=== PATIENT | male | born 1985 | race Caucasian/White ===

== ENCOUNTER → 2020-03-31 13:35 | Outpatient (BNVA) | payer OTHER, SELFPAY | PROVIDERS: Family Provider Family Medicine; Visit Provider Dermatology | DX: B07.8 Other viral warts (principal) | CPT/HCPCS: 11900; 17000; 17003; 99203; 99204 ==

== ENCOUNTER → 2020-04-20 12:47 | Outpatient (BNVA) | payer OTHER, SELFPAY | PROVIDERS: Family Provider Family Medicine; Visit Provider Nurse Practitioner | DX: S62.306A Unspecified fracture of fifth metacarpal bone, right hand, initial encounter for closed fracture (principal); X58.XXXA Exposure to other specified factors, initial encounter | CPT/HCPCS: 73130 ==

== ENCOUNTER 2020-04-22 15:50 | Outpatient (CLI) | payer OTHER, SELFPAY | END 2020-04-22 15:51 | disposition home or self-care (01) | LOC: SPT 15:50 | PROVIDERS: Family Provider Family Medicine; PCP Family Medicine; Visit Provider Orthopaedic Surgery | DX: Z46.89 Encounter for fitting and adjustment of other specified devices (principal); S62.396D Other fracture of fifth metacarpal bone, right hand, subsequent encounter for fracture with routine healing; S62.306D Unspecified fracture of fifth metacarpal bone, right hand, subsequent encounter for fracture with routine healing; X58.XXXD Exposure to other specified factors, subsequent encounter | CPT/HCPCS: 97760; L3984 ==

== ENCOUNTER 2020-04-24 08:41 | Day surgery (SDC) | payer OTHER, SELFPAY ==
[2020-04-24] VITALS (11 sets, daily range): BP systolic 111–158; BP diastolic 57–96; PULSE 59–80; RESP 15–23; TEMP 36.1–37.1; O2SAT 95–100
--- NOTE | 2020-04-24 | XR_ITS ---
WS: [id number] Right hand, 2 C-arm fluoroscopy views, 04/24/2020 Clinical Data: PINNING OF METACARPAL Comparison: Right hand, 04/20/2020. Findings: An orthopedic pin has been inserted to reduce the fracture of the distal portion of the rig ht fifth metacarpal. XR/XR hand RT 2V [id number] Impression: Internal fixation of fracture of distal right fifth metacarpal.
--- NOTE | 2020-04-24 | SCC_ITS ---
Procedure Done: Open reduction and internal fixation right fifth metacarpal 53.9 seconds of fluoroscopic guidance, for a cumulative dose of 0.94 mGy, was provided to Dr. Parra by the radiology department. C-arm images of the RIGHT hand were saved for the patient's permanent record. [facility]ITALArtemio
--- NOTE | 2020-04-24 09:06 | ANES.PREANE2 ---
Pre-Anesthetic Assessment Pre-Anesthetic Assessment: Height/Weight: Height 1.8 m Weight 83.461 kg Preop Diagnosis: Right fifth metacarpal fracture Proposed Procedure: Operation Date: 04/24/20 10:25 Proposed Procedures p ORIF Finger [id number] S62.306A(Right) - Song Parra MD Familial anesthetic complications: None Was Beta Ewa taken within 24 hours: N/A Last intake: Intake Last Liquid Date 04/23/20 Last Liquid Time 22:00 Last Solid Date 04/23/20 Last Solid Time 22:00 Social: Social History: No alcohol and No tobacco Exam: Pre-Anes Outpt Exam: alert, oriented x 3, clear to auscultation bilaterally and regular rate & rhythm Airway: Cervical ROM: WNL MP: 2 Dentition: Full Anesthetic Plan: ASA status: 1 Anesthesia: General Risk of > 500 ml blood loss (7ml/kg in children): No PFSH Anesthesia PFSH: Family History Grandfather CAD (coronary artery disease) Grandmother CAD (coronary artery disease) Mother Diabetes Social History Smoking and tobacco status: never smoked Second hand smoke exposure: No Alcohol intake: current Alcohol intake frequency: holidays/special occasions only Data Anesthesia Other Labs: Laboratory Results - last 48 hr 04/23/20 14:25 SARS-CoV-2 RNA (RT-PCR) Cancelled Cardiac Studies: No Data to Display
--- NOTE | 2020-04-24 09:40 | W.PM.OPSUD ---
Surgery/Procedure H&P Update DATE OF PROCEDURE: April 24, 2020 DATE H&P PERFORMED: 04/22/20 PREOP DIAGNOSIS: Right fifth metacarpal fracture PLANNED PROCEDURE: Operation Date: 04/24/20 10:25 Proposed Procedures p ORIF Finger [id number] S62.306A(Right) - Song Parra MD
[2020-04-24] MEDS: sodium chloride 0.9% 1,000 ML 30 ML IV (10:11)
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
--- NOTE | 2020-04-24 12:03 | SUR.PHASEI ---
PT AWAKE ALERT TALKATIVE DENIES PAIN AND NAUSEA PT ON RA TRIAL
[2020-04-24] MEDS: fentaNYL 50 mcg/mL INJ 2mL IVP ×2 (12:10→12:16)
--- NOTE | 2020-04-24 12:14 | SUR.PHASEI ---
1210 PT MORE ALERT NOW RATES RT HAND PAIN AT 8.5 SEE PAIN MED GIVEN
--- NOTE | 2020-04-24 12:32 | SUR.PHASEI ---
1230 PT TO OPS HANDOFF AT BEDSIDE , SPLINT TO RT HAND PT TALKATIVE AND LAUGHING STATES PAIN IS BETTER.
[2020-04-24] MEDS: HYDROcodone-acetaminophen 5-325 mg Tablet 1 TAB PO (12:49)
--- NOTE | 2020-04-24 13:00 | ANE.PACU2 ---
Inpatient post-anesthesia follow up: Airway intact: Yes Vital signs: Temperature 98.7 F Pulse Rate 75 Respiratory Rate 15 Blood Pressure 149/90 Pulse Oximetry 97 Oxygen Delivery Me thod Room Air Oxygen Flow Rate 8 Fraction of Inspir ed Oxygen Hydration adequate: Yes Nausea and vomiting: No Pain level: 1 Mental status: Baseline
[2020-04-25 09:02] LABS: Coronavirus Lab Test PTC Negative
== END 2020-04-24 13:08 | disposition home or self-care (01) ==
PROVIDERS: PCP Family Medicine; Visit Provider Orthopaedic Surgery
PROC: (CPT 20690; principal; 2020-04-24 10:25)
DX: S62.306A Unspecified fracture of fifth metacarpal bone, right hand, initial encounter for closed fracture (principal); W22.8XXA Striking against or struck by other objects, initial encounter
CPT/HCPCS: 20690; 26615; 12345; 73120; 76000; 87635; C1713; J0690; J2704; J3010; J7030

== ENCOUNTER → 2020-05-07 14:05 | Outpatient (BNVA) | payer OTHER, SELFPAY | PROVIDERS: PCP Family Medicine; Visit Provider Nurse Practitioner | DX: R52 Pain, unspecified (principal) | CPT/HCPCS: 81000 ==

== ENCOUNTER 2020-05-08 21:22 | Emergency (ER) | payer OTHER, SELFPAY ==
[2020-05-08 21:29] VITALS: BP 156/89; PULSE 95; RESP 18; TEMP 36.2; O2SAT 99; BMI 25.9
[2020-05-08 22:09] LABS: Basophils % 0.3 %; Eosinophils # 0.2 10^3/uL (0.0-0.8); Eosinophils % 1.9 %; Lymphocytes # 1.8 10^3/uL (0.8-4.8); Lymphocytes % 19.7 %; Mean Corpuscular HGB Conc 32.6 g/dL (30.0-36.0); Mean Corpuscular Hemoglobin 29.7 pg (28.0-34.0); Mean Corpuscular Volume 91.1 fL (80-94); Mean Platelet Volume 12.3 fL (7.4-10.4); Monocytes # 0.7 10^3/uL (0.2-0.9); Monocytes % 7.1 %; Neutrophils # 6.54 10^3/uL (1.8-7.7); Neutrophils % 70.7 %; Nucleated Red Blood Cells % 0 %; Platelet Count 196 10^3/cmm (130-400); Red Blood Count 4.72 10^6/uL (4.1-5.3); Red Cell Distribution Width 12.5 % (12.1-15.1); White Blood Count 9.3 10^3/uL (4.0-10.0)
--- NOTE | 2020-05-08 22:16 | W.ED.ABDPA2 ---
HPI - Abdominal Pain General: Chief Complaint: Abdominal Pain Stated Complaint: abd pain Time Seen by Provider: 05/08/20 22:15 Source: patient Mode of arrival: ambulatory Limitations: no limitations History of Present Illness: HPI narrative: 34-year-old male patient comes in today with complaints of abdominal pain. Patient reports discomfort in the abdomen since Tuesday. Patient was seen at urgent care and they noted sugar in his urine and recommended that he follow-up with primary care. Patient comes in this evening for worsening abdominal pain. Patient has had his appendix out continues to have his gallbladder. Patient is worried for gallbladder. Associated Symptoms: Reports nausea Review of Systems General: Reports: 10 or more systems reviewed and unremarkable except in HPI and below GI: Reports: abdominal pain and nausea PFS ED PFSH: Family History Grandfather CAD (coronary artery disease) Grandmother CAD (coronary artery disease) Mother Diabetes Social History Smoking and tobacco status: never smoked Second hand smoke exposure: No Alcohol intake: current Alcohol intake frequency: holidays/special occasions only Physical Exam Const: COMMON NORMALS: no acute distress and patient oriented x3 GENERAL APPEARANCE: cooperative HENMT: COMMON NORMALS: normocephalic and Normal external nose present HEAD & SCALP: normal to inspection and normocephalic NOSE: Normal external nose present MOUTH: Normal oral and palatal mucosa present THROAT: posterior oropharynx normal Eye: GENERAL EYE: appearance normal, both eyes and all related structures Neck/C-Spine: COMMON NORMALS: full ROM Lymph: LYMPHATIC: no lymphadenopathy noted Chest: COMMONS NORMALS: normal inspection of the chest Resp: COMMON NORMALS: normal respiratory effort EFFORT & INSPECTION: Yes able to speak in complete sentences Cardio: COMMON NORMALS: regular rate and regular rhythm RATE: regular rate RHYTHM: regular rhythm GI: COMMON NORMALS: Soft to palpation (small umbilical hernia, reducible) PALPATION: Yes Soft to palpation (small umbilical hernia, reducible) and Yes Tenderness to palpation present (GI) (right sided abd) : COMMON NORMALS: Yes no CVA tenderness BLADDER/KIDNEY EXAM: Yes no CVA tenderness Back/Pelvis: COMMON NORMALS: no CVA tenderness and thoracic and lumbar spine normal to inspection Extremity: COMMON NORMALS: normal to inspection Neuro: COMMON NORMALS: patient oriented x3 and moves all extremities Psych: COMMON NORMALS: mental status grossly normal and cooperative Skin: COMMON NORMALS: no rashes or lesions noted GENERAL SKIN EXAM: no rashes or lesions noted Course Vital Signs: Vital signs: Vital Signs Temperature 97.2 F L 05/08/20 21:29 Pulse Rate 76 05/08/20 22:51 Respiratory Rate 16 05/08/20 22:51 Blood Pressure 147/88 05/08/20 22:51 Pulse Oximetry 98 05/08/20 22:51 MDM - Abdominal Pain MDM Narrative: Medical decision making narrative: Patient comes in today with right lower quadrant abdominal pain. Patient reports pain for the last 4 to 5 days. Patient denies any fever or nausea or vomiting. Patient appears well. Patient appears in mild to moderate pain. Differential diagnosis includes but not limited to bowel obstruction, cholecystitis, pancreatitis, diverticulitis. Laboratory values noted no significant abnormality. CT scan abdomen pelvis noted some diverticulitis of the ascending colon. Reviewed exam with patient with recommendations for treatment and follow-up. Patient and both reported understanding. Lab Data: Labs: Lab Results 05/08/20 05/08/20 05/08/20 Range/Units 21:45 21:45 22:42 WBC 9.3 (4.0-10.0) 10^3/ uL RBC 4.72 (4.1-5.3) 10^6/u L Hgb 14.0 (11.7-16.6) g/dL Hct 43.0 (42.0-52.0) % MCV 91.1 (80-94) fL MCH 29.7 (28.0-34.0) pg MCHC 32.6 (30.0-36.0) g/dL RDW 12.5 (12.1-15.1) % Plt Count 196 (130-400) 10^3/c mm MPV 12.3 H (7.4-10.4) fL Neut % (Auto) 70.7 % Lymph % (Auto) 19.7 % Gallia % (Auto) 7.1 % Eos % (Auto) 1.9 % Baso % (Auto) 0.3 % Neut # (Auto) 6.54 (1.8-7.7) 10^3/u L Lymph # (Auto) 1.8 (0.8-4.8) 10^3/u L Gallia # (Auto) 0.7 (0.2-0.9) 10^3/u L Eos # (Auto) 0.2 (0.0-0.8) 10^3/u L Baso # (Auto) 0.0 (0.0-0.1) 10^3/u L Nucleated RBC % (a uto) 0 % Nucleated RBCs # 0.0 /100WBC Sodium 137 (136-145) mmol/L Potassium 3.6 (3.5-5.1) mmol/L Chloride 100 (98-107) mmol/L Carbon Dioxide 26 (22-29) mmol/L Anion Gap 14.6 (5-19) BUN 12 (6-20) mg/dL Creatinine 1.2 (0.7-1.2) mg/dL GFR Calculation 69.3 L (90-130) mL/min Glucose 131 H (65-115) mg/dL Calculated Osmolal ity 286 (285-295) mOsm/k g Calcium 8.9 (8.5-10.5) mg/dL Total Bilirubin 0.5 (0.15-1.2) mg/dL AST 25 (0-40) U/L ALT 37 (0-41) U/L Alkaline Phosphata se 82 (40-130) IU/L Total Protein 7.6 (6.6-8.7) g/dL Albumin 4.1 (3.5-5.2) g/dL Globulin 3.5 (1.3-4.6) g/dL Lipase 32 (13-60) U/L Urine Color Yellow (Yellow) Urine Appearance Clear (CLEAR) Urine pH 5 (5-7) Ur Specific Gravit y 1.020 (1.005-1.030) Urine Protein Neg (Negative) Urine Glucose (UA) Norm (Normal) Urine Ketones Negative (Negative) Urine Blood Neg (Negative) Urine Nitrate Negative (Negative) Urine Bilirubin Neg (Negative) Urine Urobilinogen 1 H (Negative) mg/dL Ur Leukocyte Radha ase Negative (Negative) Discharge Plan Discharge Patient Disposition: Home Clinical Impression: Diverticulitis Condition: Stable Prescriptions: New ciprofloxacin HCl 500 mg tablet 500 mg PO BID Qty: 14 RF: 0 metronidazole 500 mg tablet 500 mg PO BID 7 Days Qty: 14 RF: 0 No Action (DME) Fast form ulnar gutter See Rx Instructions .Route .MEDSUPPLY Qty: 1 RF: 0 omeprazole 40 mg capsule,delayed release(DR/EC) 40 mg PO DAILY Qty: 14 RF: 0 hydrocodone-acetaminophen 5-325 mg tablet 1 tab PO Q4H Qty: 30 RF: 0 Discharge Orders: Discharge Order (Routine); Ordered 05/09/20 Ordered By: Young Richardson Referrals: Jimmy Park MD [Primary Care Provider] - Discharge Diet: Usual diet Discharge Activity: Increase activity as tolerated Patient Instructions: Diverticulitis (ED) Activity Restrictions/Additional Instructions: Home and rest. Monitor for high fever. Monitor for worsening pain. Monitor for nausea vomiting and blood in stool. Follow-up with primary care as needed. Return to the emergency department for new concerns. Coding Level of Care Code ED Appliances Sample Maker for Gio Fwd Exam Comprehensive
[2020-05-08 22:22] LABS: Alanine Aminotransferase 37 U/L (0-41); Albumin Level 4.1 g/dL (3.5-5.2); Alkaline Phosphatase 82 IU/L (40-130); Anion Gap 14.6 (5-19); Aspartate Amino Transferase 25 U/L (0-40); Blood Urea Nitrogen 12 mg/dL (6-20); Calcium 8.9 mg/dL (8.5-10.5); Carbon Dioxide 26 mmol/L (22-29); Chloride 100 mmol/L (98-107); Globulin 3.5 g/dL (1.3-4.6); Glomerular Filtration Rate 69.3 mL/min (90-130); Glucose 131 mg/dL (65-115); Lipase 32 U/L (13-60); Osmolality Calculated 286 mOsm/kg (285-295); Potassium 3.6 mmol/L (3.5-5.1); Sodium 137 mmol/L (136-145); Total Bilirubin 0.5 mg/dL (0.15-1.2); Total Protein 7.6 g/dL (6.6-8.7)
--- NOTE | 2020-05-08 22:23 | CTR_ITS ---
PROCEDURE INFORMATION: Exam: CT Abdomen And Pelvis With Contrast Exam date and time: 05/08/2020 10:48 PM Age: 34 years old Clinical indication: Abdominal pain; Generalized; Prior surgery; Surgery type: Appy; Additional info: Diffuse abd pain TECHNIQUE: Imaging protocol: Computed tomography of the abdomen and pelvis with intravenous contrast. Radiation optimization: All CT scans at this facility use at least one of these dose optimization techniques: automated exposure control; mA and/or kV adjustment per patient size (includes targeted exams where dose is matched to clinical indication); or iterative reconstruction. Contrast material: OMNI 300; Contrast volume: 95 ml; Contrast route: INTRAVENOUS (IV); COMPARISON: No relevant prior studies available. RADIATION DOSE METRICS: Total DLP (mGy-cm): 603.3 FINDINGS: Lungs: The lung bases are clear. Mediastinal space: Very small hiatal hernia. There may be some mucosal/wall thickening involving the lower esophagus. This is nonspecific, but could represent evidence for esophagitis. Please correlate clinically. Liver: Unremarkable. Gallbladder and bile ducts: The gallbladder is contracted. No visible gallstones by CT. No biliary tree dilation. Pancreas: Unremarkable. Spleen: Unremarkable. Adrenals: Unremarkable. Kidneys and ureters: Unremarkable. Stomach and bowel: There are moderate to severe inflammatory changes around the upper ascending colon. Findings likely represent right-sided diverticulitis. There is some associated mucosal/wall thickening. Small amount of pericolonic fluid. No definite pericolonic abscess at this time. There appears to be a 15 mm inflamed diverticulum in this region, containing some gas. Possibility of a small amount of extraluminal gas, this could indicate microperforation. Other etiologies that could present with a similar appearance would include; other forms of colitis/focal inflammatory bowel diseases, and much less likely bowel ischemia, or neoplasm. Appropriate followup recommended. Appendix: Reportedly, there has been prior appendectomy. Intraperitoneal space: No free air, ascites, or bowel distention. Vasculature: No evidence for abdominal aortic aneurysm. Lymph nodes: No retroperitoneal adenopathy. Bladder: Possibly some mild diffuse urinary bladder wall thickening. Evaluation is somewhat limited, as the bladder is not well distended. While nonspecific, this could indicate evidence for cystitis. Please correlate clinically. Reproductive: Essentially unremarkable for age. Bones/joints: No significant acute finding. Soft tissues: Small umbilical hernia, containing only fat. CT/CT abdomen pelvis w con* [id number] IMPRESSION: 1. Findings suspicious for right-sided diverticulitis involving the upper ascending colon. Possibility of micro perforation. See additional discussion above. 2. No free air or bowel distention. 3. Possible mild urinary bladder wall thickening, see above. 4. Very small hiatal hernia. Possibly some thickening of the lower esophagus, see above discussion. 5. Other findings discussed above. Radiation Dose CTDIVOL = (mGy): DLP = 603.3 (mGy-cm)
[2020-05-08 22:46] LABS: Add Urine Microscopic? NO
[2020-05-08 22:51] VITALS: BP 147/88; PULSE 76; RESP 16; O2SAT 98
[2020-05-08 22:52] LABS: Bilirubin Urine Neg (Negative); Blood Urine Neg (Negative); Glucose Urine UA Norm (Normal); Ketones Urine Negative (Negative); Leukocyte Esterase Urine Negative (Negative); Nitrate Urine Negative (Negative); Protein Urine Neg (Negative); Urine Appearance Clear (CLEAR); Urine Color Yellow (Yellow); Urobilinogen Urine 1 mg/dL (Negative); pH Urine 5 (5-7)
[2020-05-08] MEDS: iohexol 300 mg/mL 100 mL Btl IV (23:12)
[2020-05-09 00:12] VITALS: BP 138/92; PULSE 78; RESP 16; O2SAT 98
[2020-05-09] MEDS: ciprofloxacin 500 mg Tablet PO (00:25)
[2020-05-09] MEDS: metroNIDAZOLE 500 MG Tablet PO (00:25)
== END 2020-05-09 00:26 | disposition home or self-care (01) ==
PROVIDERS: Emergency Medicine; Emergency Provider Nurse Practitioner Family; PCP Family Medicine
DX: K57.92 Diverticulitis of intestine, part unspecified, without perforation or abscess without bleeding (principal)
CPT/HCPCS: 12345; 36415; 74177; 80053; 81003; 83690; 85025; 99283; Q9967

== ENCOUNTER → 2020-06-04 08:22 | Outpatient (BNVA) | payer OTHER, SELFPAY | PROVIDERS: PCP Family Medicine; Visit Provider Orthopaedic Surgery | DX: S62.302A Unspecified fracture of third metacarpal bone, right hand, initial encounter for closed fracture (principal); Z48.89 Encounter for other specified surgical aftercare; X58.XXXA Exposure to other specified factors, initial encounter | CPT/HCPCS: 73130 ==

== ENCOUNTER → 2020-07-01 12:21 | Outpatient (BNVA) | payer OTHER, SELFPAY | PROVIDERS: PCP Family Medicine; Visit Provider Orthopaedic Surgery | DX: Z48.89 Encounter for other specified surgical aftercare (principal) | CPT/HCPCS: 73130 ==

== ENCOUNTER → 2022-12-21 10:16 | Outpatient (BNVA) | payer OTHER, SELFPAY | PROVIDERS: PCP Family Medicine; Visit Provider Emergency Medicine | DX: Z20.2 Contact with and (suspected) exposure to infections with a predominantly sexual mode of transmission (principal) | CPT/HCPCS: 80074; 87491; 87591; 87806 ==